=== PATIENT | male | born 1955 | race Caucasian/White ===

== ENCOUNTER → 2019-10-10 07:39 | Outpatient (BNVA) | payer BC, SELFPAY | PROVIDERS: Family Provider Family Medicine; PCP Family Medicine; Visit Provider Nurse Practitioner Family | DX: Z00.00 Encounter for general adult medical examination without abnormal findings (principal); I10 Essential (primary) hypertension; Z93.3 Colostomy status | CPT/HCPCS: 80053; 80061; 84439; 84443 ==